=== PATIENT | female | born 1990 | race Caucasian/White ===

== ENCOUNTER → 2020-10-23 12:42 | Outpatient (CLI) | payer SELFPAY ==
--- NOTE | 2020-10-23 12:45 | DI.RAD.S_ITS ---
PROCEDURE: HL HYSTEROSAPINGOGRAPHY INDICATIONS: IVF COMPARISON: None. FINDINGS: Patient had a documented negative test prior to the study. Following speculum insertion, a balloon-tip catheter was inserted into the cervical canal, and secured by inflating the balloon. Contrast was then injected into the endometrial canal. Uterus: The uterine cavity appears normal in size and morphology, without synechiae or masses. Fallopian tubes: Both fallopian tubes fill with contrast and abrupt blind ended appearance in keeping with prior ligation. IMPRESSION: Expected ligated appearance of both fallopian tubes as above Dictated by: Jw Neville M.D. on 10/23/2020 at 15:30 Approved by: Jw Neville M.D. on 10/23/2020 at 15:48
--- NOTE | 2020-10-23 13:33 | PM.PROC.1 ---
Procedures Date/Time Date of procedure: 10/23/20 Time of procedure: 13:33 General Procedure description: Hysterosalpingogram After informed consent was obtained, the patient was placed on the fluoroscopy table. An upside down bedpan was placed under her bottom. A open-sided speculum was placed into the vagina. The cervix was cleaned x3 with Betadine. A single-tooth tenaculum was placed on the anterior lip of the cervix. The hysterosalpingogram catheter passed easily into the endometrial cavity and the balloon was inflated with 3 cc of air. The open sided speculum was removed from the vagina. Approximately 20 cc of Optiray 300 were injected into the catheter under fluoroscopic examination. The contours of the uterus were normal. There was some fill in the tubes but no spillage. The contrast was removed from the uterus. The single-tooth tenaculum was removed from the anterior lip of the cervix. The catheter was removed from the uterus. Complications: none
== END ==
PROVIDERS: Referring Provider Obstetrics & Gynecology; Visit Provider Obstetrics & Gynecology
DX: Z31.83 Encounter for assisted reproductive fertility procedure cycle (principal); E28.2 Polycystic ovarian syndrome
CPT/HCPCS: 58340; 74740

== ENCOUNTER 2022-10-28 06:22 | Day surgery (SDC) | payer SELFPAY ==
[2022-10-25 15:20] VITALS: BMI 29.2
[2022-10-28] VITALS (12 sets, daily range): BP systolic 109–142; BP diastolic 60–77; PULSE 82–144; RESP 10–22; TEMP 36.4–36.7; O2SAT 94–100; BMI 29.2
--- NOTE | 2022-10-28 | PATH_ITS ---
[facility] Accession Number: [id number] No. of containers..01 Tissue . 01 Material submitted: . uterus - UTERUS, BILATERAL FALLOPIAN TUBES . 01 Diagnosis: A. Uterus and Bilateral Fallopian Tubes, Supracervical Hysterectomy and Bilateral Salpingectomy: Proliferative phase endometrium. Serosa within normal limits. Myometrium within normal limits. Cross-sections of bilateral fallopian tubes with benign paratubal cysts and features of hydrosalpinx. No evidence of neoplasia or malignancy. [facility] 11/05/2022 1140 Local . 01 Electronically signed: . Vera Ritchie MD, Pathologist NPI- [id number] . 01 Gross description: . The specimen is received in formalin, labeled with the patient's name, , and uterus, bilat fallopian tubes, consists of a fragmented uterus (84 grams, 11.5 x 9.6 x 2.8 cm in aggregate) with two unoriented fimbriated fallopian tubes (7.6 x 0.8 cm and 5.9 x 0.6 cm, respectively) with no cervix or additional adnexa identified. The serosa is waters and wrinkled with no evidence of adhesion or hemorrhage identified. The endometrium is waters-brown and velvety, and averages 0.1 cm thick. The myometrium is waters and trabecular with no nodules or lesions identified. The longer fallopian tube has congested smooth serosa with multiple cystic structures measuring up to 1.7 cm in greatest dimension filled with clear serous fluid. Sectioning reveal an area of discontinuous lumen measuring 1.0 cm in length. All the remaining lumen ranges from stellate to dilated. The shorter fallopian tube has congested smooth serosa with multiple cystic structures measuring up to 1.2 cm in greatest dimension filled with clear serous fluid. Sectioning reveals an area of discontinuous lumen measuring 1.1 cm in length. The remaining lumen ranges from stellate to dilated. [place]rick[place] [employer]er sections are submitted as follows: A1: Endometrium. A2: Serosa. A3: Longer fallopian tube to include one-half of bisected fimbriae and cross-sections. A4: [place] fallopian tube to include one-half of bisected fimbriae and cross-sections. ([id number]) /MRV 10/29/2022 [facility]1 Local . 01 Pathologist provided ICD-10: N92.0, N86, K42.9 . 01 CPT . 371172 Specimen Comment: A courtesy copy of this report has been sent to [phone] Performed at: 01 [facility] [address] [place] [address] [id number] MD Michael Guzman MD Phone: [phone]
[2022-10-28] MEDS: LACTATED RINGERS 1,000 ML 100 ML IV ×4 (06:58→16:32)
--- NOTE | 2022-10-28 07:38 | PM.PREOP ---
Pre-operative Note Interval Note History & Physical reviewed/Exam performed by Physician: Yes Changes to H&P: No
--- NOTE | 2022-10-28 07:46 | PM.PREOP ---
Pre-operative Note COVID-19 Criteria for continued procedure: Delay expected to result in less-positive ultimate med/surg outcome Interval Note History & Physical reviewed/Exam performed by Physician: Yes Changes to H&P: No H&P completed within 30 days and has changed as indicated here:: 10/21/22
[2022-10-28] MEDS: ACETAMINOPHEN IV 1,000 MG/100 ML VIAL 400 MG IV (08:00)
[2022-10-28] MEDS: CEFAZOLIN 2 GM/100 ML PREMIX 100 ML IV (08:00)
--- NOTE | 2022-10-28 08:32 | SUR.OPER ---
Lithotomy on padded OR bed. [place] Pad Positioner under torso. Head on pillow, arms padded and tucked at sides. Legs secured in padded yellow fins stirrups.
[2022-10-28] MEDS: BUPIVACAINE 0.5% (PF) 30 ML, EPINEPHrine 0.15 MG INJ (08:39)
[2022-10-28] MEDS: ROPIVACAINE 0.2% PF 2 MG/ML 20ML AMP 20 ML INJ (09:00)
--- NOTE | 2022-10-28 09:57 | PM.GYNOP.1 ---
Operative Date/Time/Diagnoses Date of procedure: 10/28/22 Time of procedure: 09:57 Pre-op diagnosis: Dysmenorrhea Menorrhagia Right Hydrosalpinx Cervical ectropion Bleeding after intercourse Post-op diagnosis: same Procedure & Clinicians Procedure: Procedures Operation Date: 10/28/22 07:45 Actual Procedure Side Surgeon p Laparoscopic Supracervical Hysterectomy, bilateral salpingectomy, cautery of ectropion Clotilde Valverde MD s Hernia Repair - Umbilical Jose Alfredo Queen MD Indications: Menorrhagia Dysmenorrhea Cervical ectropion Bleeding after intercourse Right hydrosalpinx Surgeon: Clotilde Valverde [employer] Flatbed Truck Driver: Delores Leary Anesthesia Type: General and Local Operative Notes Findings: 8 week size anteverted uterus Adenomyosis Right hydrosalpinx Left paratubal cyst Normal ovaries Normal appendix Normal liver Tubes status post ligation Omental to anterior abdominal wall adhesions Closure Type: primary Specimen(s): left tube, right tube and uterus Applied: catheter (Removed at the end of the case) Estimated blood loss (mL): 50 Blood products transfused: none Procedure in detail: The patient was taken to the operating room where she was placed in the dorsal supine position. After adequate general endotracheal anesthesia was achieved, she was placed in the dorsal lithotomy position, and prepped and draped in the usual sterile fashion. A timeout was performed. A bivalve speculum was placed into the vagina and the anterior lip of the cervix grasped with a single-tooth tenaculum. The cervical os was sequentially dilated until the ZUMI uterine manipulator could pass easily into the endometrial cavity. The single-tooth tenaculum was removed from the anterior lip of the cervix, and the bivalve speculum was removed from the vagina. Attention was then turned to the abdomen where 6 mL of half percent Marcaine with epinephrine were injected in the umbilical fold. A 5 mm incision was made. The Verees needle was placed into the peritoneal cavity, and its placement confirmed by aspiration and drop test. The Verees needle was removed. A 5 mm trocar was placed without difficulty. 2 other incisions were made 4 cm lateral to the umbilicus after 5 mL of half percent Marcaine with epinephrine were injected. These were 5 mm incisions. Two 5 mm trocars were placed under direct visualization. The Powerseal was used to take down the omental adhesions, with cautery and cut. The right tube was grasped with an atraumatic grasper. Using the Powerseal the mesosalpinx was cauterized and cut all the way down to the cornua of the uterus. The cornua of the uterus was then grasped with an atraumatic grasper. The utero-ovarian ligaments were cauterized and cut. The round ligament and broad ligament was cauterized and cut. Hemostasis was achieved. The bladder flap was created using the Powerseal with cautery and cut jail across. The uterine arteries on the right side were extensively cauterized. All of this was repeated on the left side. The remainder of the bladder flap was created using the Powerseal, and the bladder taken down off the lower uterine segment and cervix. Using the [place], the cervix was amputated from the uterus 2 cm above the uterosacral ligaments, after the ZUMI uterine manipulator was removed from the uterus. There was a small amount of bleeding noted from the posterior edge of the cervix, and this was cauterized for hemostasis. A sponge stick was placed into the vagina. 6 mL of half percent Marcaine with epinephrine were injected above the pubic symphysis. A 12 mm trocar was placed. An Endobag was placed through the suprapubic trocar and the uterus and tubes were placed into the Endobag. The trocar was removed. The edges of the endobag were brought up through the skin. The uterus was grasped with a Zuleyma. The Darwin was placed into the endobag. The uterus and tubes were hand morcellated in approximately 4 pieces. The Darwin and Endobag were removed from the peritoneal cavity. The fascia was closed with 0-vicryl in a running fashion. The abdomen was reinsufflated with CO2. The pelvis was copiously irrigated with warm normal saline. No bleeding was noted. The instruments were removed from the abdomen. The CO2 was allowed to escape. The subcutaneous layer on the suprapubic incision was reapproximated with 2-0 vicryl with simple interrupted sutures. All of the incisions were closed with 4-0 Biosyn in a subcuticular fashion. Steri strips and Allevyn dressings were placed. The moistened sponge stick was removed from the vagina. Sponge, lap, and instrument counts were correct x-2. The patient tolerated the procedure well, was taken to PACU in stable condition. Complications: none Post-operative Condition: stable Disposition: PACU Plan for aftercare: To acute care after recovery
--- NOTE | 2022-10-28 10:07 | PM.OP.1 ---
Operative Date/Time/Diagnoses Date of procedure: 10/28/22 Time of procedure: 10:07 Pre-op diagnosis: Umbilical hernia Post-op diagnosis: same Procedure & Clinicians Procedure: Open umbilical hernia repair Same procedure as scheduled: Yes Indications: Symptomatic reducible umbilical hernia Surgeon: Jose Alfredo Queen Click Yes if Unassisted: Yes Anesthesia Type: General Operative Notes Findings: 1 cm fascial defect Specimen(s): none sent Estimated Blood Loss (mL): 10 Procedure in detail: Following the hysterectomy the umbilical hernia was repaired. A infra umbilical incision had been created for laparoscopic access and this incision was slightly extended. Through this incision the subcutaneous tissue was divided and the fascia was exposed demonstrating an approximately 1 cm size fascial defect. Given the small size of the defect no mesh was utilized. The hernia sac was dissected off the fascia and returned to the abdomen. The fascia was then closed with interrupted Ethibond suture. Subcutaneous tissue was reapproximated with Vicryl skin was closed with a running Monocryl. Patient tolerated the operation well was extubated and transferred to recovery in stable condition. Post-operative Condition: stable Disposition: same day surgery
[2022-10-28] MEDS: ONDANSETRON 4 MG/2 ML INJ IV (12:35)
--- NOTE | 2022-10-28 15:18 | PC.NURSE ---
Pt Arrived from PACU approximately 1045 a.m. She is A&OX4, VSS, afebrile on RA. X4 allevyn sites to abdomen C/D/I. Patient is able to ambulate to BR and void without difficulty. She has x2 episodes of vomitting and reports nausea this afternoon. She is given prn zofran with good effect, and reports feeling sleepy. LR IVF running 100ml/hr.Frequent rounding, bed alarm, call light in reach. Her is supportive at bedside this afternoon.
[2022-10-28] MEDS: ACETAMINOPHEN 325 MG TABLET 650 MG PO (17:54)
[2022-10-28] MEDS: DOCUSATE 100 MG CAPSULE 200 MG PO (21:13)
[2022-10-29 05:43] VITALS: BP 110/57; PULSE 85; RESP 21; TEMP 36.1; O2SAT 99
[2022-10-29] MEDS: KETOROLAC 30 MG/ML VIAL IV (05:55)
[2022-10-29] MEDS: ACETAMINOPHEN 325 MG TABLET 650 MG PO (05:55)
[2022-10-29 06:38] LABS: Add Manual Diff / Slide Review NO; Basophils Absolute Auto 100 /uL (0-100); Basophils Percent Auto 0.7 % (0-2); Eosinophils Absolute Auto 100 /uL (0-450); Eosinophils Percent Auto 0.5 % (2-4); Hematocrit 32.5 % (36-46); Hemoglobin 11.3 g/dL (12.0-16.0); Lymphocytes Absolute Auto 3400 /uL (1100-4500); Lymphocytes Percent Auto 30.3 % (25-40); Mean Corpuscular HGB Conc 34.8 % (30-36); Mean Corpuscular Hemoglobin 30.1 PG (26-34); Mean Corpuscular Volume 86.5 fL (80-100); Monocytes Absolute Auto 1000 /uL (0-900); Monocytes Percent Auto 9.1 % (3-14); Neutrophils Absolute Auto 6700 /uL (1500-7000); Neutrophils Percent Auto 59.4 % (50-75); Platelet Count 297 X10^3/uL (150-400); Red Blood Cell Count 3.75 X10^6/uL (4.0-5.2); Red Cell Distribution Width 13.8 % (11.6-14.8); White Blood Cell Count 11.2 X10^3/uL (4.5-11.0)
[2022-10-29] MEDS: DOCUSATE 100 MG CAPSULE 200 MG PO (08:12)
[2022-10-29 08:34] VITALS: BP 114/69; PULSE 76; RESP 16; TEMP 36.3; O2SAT 97
--- NOTE | 2022-10-29 08:50 | CM.DANOTE ---
DCP: Case received, EMR reviewed. Was unable to meet with patient, for she has already left [place] the ferry, since she has DC orders, and checked her room, she already left. Completed DCP assessment based upon information currently available. Patient is a 31 year old female who admitted yesterday morning to the care of the surgical team. PCP: Dr. Chen. Payer: confirmed: [employer]. Patient came to the hospital for a surgical procedure. She had open umbilical hernia repair. Patient has history of umbilical hernia. Went to meet patient, but she already left the hospital, per nursing, wanted to get the 0900 ferry. Confirmed that patient resides in [place], with spouse. She is employed at [employer]. P: Patient has discharged home with no needs. Princess Thacker RN/Worm Farm Laborer Discharge Planning/Care Management CM Discharge Assessment Start: 10/29/22 08:49 Freq: Status: Active Protocol: Document 10/29/22 08:50 (Rec: 10/29/22 08:50 [id number]) Discharge Planning Assessment Assigned [employer] Princess Thacker RN/Worm Farm Laborer Advance Directives? No History Provided By Patient,Medical Record Prior Living Arrangements House Household Members spouse,children Type of transporation used prior to Drives own vehicle admit Independent with ADL's Yes Is patient alert and oriented? Yes Caregiver for Another No Barriers to Discharge No Discharge Plan Home Transportation Arrangement Family Referrals Initiated None needed Whiteboard Updated in Patient Room with Yes name and ext. # of [employer] Review Status In Process Next Review Type Continued Stay Review Pre-Anesthesia Assessment Start: 10/25/22 15:11 Freq: Status: Complete Protocol: Document 10/25/22 15:20 CAB (Rec: 10/25/22 15:23 [facility] [id number]) Pre-Anesthesia Assessment Patient Information Reviewed Via Chart Review Primary Care Provider Peggy Chen Seen Specialist in Last 12 Months Yes Specialist Seen General surgeon,Shell Fisherman Primary Language Kosovan Flight Information Expediter Required No Height 5 ft 4 in Weight 170 lb Body Mass Index (BMI) 29.2 Barriers to Learning None Anesthesia Review Requested No Gm Mobile No Smoking Status Never smoker History of Falling (Recent or History of No ) Patient is completely paralyzed or No completely immobile Mental Status Oriented to own ability Is patient on oxygen? No Hx Sleep Apnea No Currently Taking a Beta Tasha No Anti-Coagulant Therapy No Has a Prizer Hand No Cardiac Testing No Hx Pacemaker/ICD No Pacemaker Rep Required? No Cardiac Clearance Received Not Applicable Urinary Catheter Present No Hx Urinary Self Catheterization No Diabetes No Patient No Marital Status Lives With spouse,children Patient Discharge Plan Description Return Home Comment Lives on [facility]
--- NOTE | 2022-10-29 09:50 | PC.NURSE ---
Pt is A&OX4, VSS, afebrile. She is able to tolerate cereal with breakfast this a.m. and is ambulating independently around the room, as well as voiding without difficulty. No bleeding observed to jojo pad. Abdominal dressings c/d/i. She is evaluated and cleared for discharge home this a.m. by . She verbalizes understanding of activity limitations, site care, medications, s/sx of complication/infection as well as follow up appointment plan. At approximately 0845 she is escorted via w/ch by PUPIL PERSONNEL WORKER with all of her belongings to private vehicle for discharge home with catching 0930 Ocean to [place].
--- NOTE | 2022-11-01 18:59 | PM.DS.1 ---
History of Present Illness History of Present Illness Date Patient Seen: 10/29/22 Time Patient Seen: 07:30 Chief complaint: OPB Narrative: Patient is a 31-year-old postop day # 1 status post laparoscopic supracervical hysterectomy with bilateral salpingectomy and lysis of adhesions She has voided without the catheter. She is tolerating a diet. She is ambulating without assistance. Discharge Providers Provider Discharge Date: 10/29/22 Primary care physician: Peggy Chen, MSN, EXTRUSION DIE REPAIR MANAGER, TISSUE PACKER- Discharge provider: Clotilde Valverde MD Summary Hospital Course Discharge Diagnosis: Hydrosalpinx Menorrhagia Dysmenorrhea Pelvic adhesions Hospital Course: Patient presented on October 28, 2022 for a scheduled laparoscopic supracervical hysterectomy bilateral salpingectomy. She underwent this procedure along with lysis of adhesions without complication. Her catheter was removed at the end of the case. Her postoperative course was unremarkable. She voided without the catheter. She tolerated a diet. She ambulated without assistance. No nausea or vomiting. Pain well controlled. She was discharged home on postop day #1. Status at Discharge Cognitive/behavioral status at discharge: oriented Functional status at discharge: independent ambulation Overall status at discharge: patient is progressing back to baseline Time Spent with Patient Time spent: Less than 30 minutes Exam Vital Signs (past 8 hours): Oxygen Delivery Method Room Air Oxygen Flow Rate 0 Narrative Exam Narrative: Generally: Patient is sitting up on edge of bed, no acute distress Lungs: Clear to auscultation bilaterally Cardiovascular: Regular rate and rhythm Abdomen: Soft. Incisions: Clean dry and intact with Allevyn dressing Extremities: Negative Homans Objective Labs 10/29/22 06:25 [facility] Medical History Polycystic ovary Surgical History Status post delivery Status post delivery (05/26/15) Status post tubal ligation (05/26/15) Social History household members: spouse and children Smoking Status: Never smoker alcohol intake: current Discharge Assessment & Plan Assessment and Plan Assessment: Assessment: Postop day # 1 status post laparoscopic supracervical hysterectomy/bilateral salpingectomy/lysis of adhesions Patient doing very well Plan of Treatment: Discharge to home Follow-up in 2 weeks Discharge Plan Discharge Plan Patient Disposition: Home Provider Discharge Comment: Call with fever, chills, redness or drainage around the incisions, or bleeding vaginally more than spotting to light Ibuprofen 600 mg every 6 hours as needed Tylenol 650 mg every 6 hours as needed Stool softeners as needed Discharge orders & Medications Discharge Orders: Discharge (Order); Ordered 10/29/22 Ordered By: Clotilde Valverde Prescriptions: No Action No Known Home Medications Follow up/Referrals: Clotilde Valverde MD [Physician] - (My office will call to set up 2 week telehealth postop appointment and 6 week in person final postop check) Diet/Activity/Treatments Diet: Regular Activity: No heavy lifting Nothing in the vagina for 4 weeks Skin/Wound/Dressing Care Report to your healthcare provider any signs of infection, such as:: chills, fever, increased pain, unusual drainage and unusual redness Dressing: Remove outer pink dressings with attached gauze in 3 days after morning shower Leave Steri-Strips in place Visit Report/Discharge Packet Instructions: DI for Hernia Repair, DI for Hysterectomy, DI for Laparoscopy, [facility]: Wound Care Stand Alone Forms: Patient Portal/API, Surgery Discharge Discharge Data Primary Care Provider: Peggy Chen Attending Provider: Clotilde Valverde Quality VTE Deep Vein Thrombosis/Pulmonary Embolism Present on Admission: No
== END 2022-10-29 08:45 | disposition home or self-care (01) ==
LOC: OR 06:24 → AC 06:24
PROVIDERS: Surgery; PCP Nurse Practitioner Family; Referring Provider Obstetrics & Gynecology; Visit Provider Obstetrics & Gynecology
PROC: 0UT94ZL Resection of Uterus, Supracervical, Percutaneous Endoscopic Approach (ICD-10-PCS; CPT 58542; principal; 2022-10-28 07:45)
PROC: (CPT 49591; 2022-10-28 07:45)
DX: N94.6 Dysmenorrhea, unspecified (principal); N92.0 Excessive and frequent menstruation with regular cycle; N70.11 Chronic salpingitis; N86 Erosion and ectropion of cervix uteri; N83.8 Other noninflammatory disorders of ovary, fallopian tube and broad ligament; N80.03 Adenomyosis of the uterus; K42.9 Umbilical hernia without obstruction or gangrene
CPT/HCPCS: 58542; 49591; 85025; J0131; J0171; J0690; J1100; J1170; J1885; J2250; J2405; J2704; J2795; J3010; J3490

== ENCOUNTER → 2023-12-06 09:43 | Outpatient (CLI) | payer OTHER, SELFPAY ==
[2023-11-11 09:34] VITALS: BMI 29.2
--- NOTE | 2023-12-06 09:43 | DI.US.S_ITS ---
PROCEDURE: US PELVIC COMPLETE INDICATIONS: LOW BACK PAIN TECHNIQUE: Real-time scanning was performed of the pelvic organs, with image documentation. Additional endovaginal scanning was necessary due to incomplete visualization of the adnexal and endometrial structures by transabdominal scanning. COMPARISON: [facility], US, US PELVIC COMPLETE, 09/28/2022, 14:39. FINDINGS: Uterus: Absent Ovaries: The right ovary measures 2.6 x 3.9 x 2.5 cm, with a calculated ovarian volume of 13.3 cc. The left ovary measures 3.2 x 2.2 x 2.8 cm, with a calculated ovarian volume of 10.3 cc. The ovaries have a normal sonographic appearance. Less than 12 follicles can be seen in each ovary. No adnexal masses are seen. Other: No pathologic free abdominal or pelvic fluid. IMPRESSION: Unremarkable exam We strive to produce accurate, complete, and clear reports of imaging services. To assist us in improving patient care, this report was composed using standard report templates and voice recognition software. Therefore, it may contain abnormal punctuation, insertions and/or omissions. Occasional wrong-word or sound-alike substitutions may occur. Though we review the report and make efforts to correct it, we do recommend that the report be read carefully in proper context to recognize any text inaccuracies. Dictated by: Ivon Faith M.D. on 12/06/2023 at 11:33 Approved by: Ivon Faith M.D. on 12/06/2023 at 11:34
== END ==
LOC: US 09:43
PROVIDERS: Referring Provider Student in an Organized Health Care Education/Training Program; Visit Provider Student in an Organized Health Care Education/Training Program
DX: M54.50 Low back pain, unspecified (principal); Z90.710 Acquired absence of both cervix and uterus
CPT/HCPCS: 76830; 76856; 93975

== ENCOUNTER 2024-04-07 16:32 | Emergency (ER) | payer OTHER, SELFPAY ==
[2023-12-28 08:06] VITALS: BMI 29.2
[2024-04-07 16:43] VITALS: BP 125/79; PULSE 94; RESP 16; TEMP 36.4; O2SAT 100; BMI 30.5
--- NOTE | 2024-04-07 17:50 | ED_ITS ---
HPI - Abdominal Pain <Socorro Woodward DO - Last Filed: 04/08/24 09:58> General Chief Complaint: Urogenital-Female Stated Complaint: sent by [facility] for pelvic px Time Seen by Provider: 04/07/24 17:39 Source: patient Mode of arrival: Ambulatory History of Present Illness HPI narrative: Patient is a healthy 33-year-old female with history of hysterectomy presenting today with right lower quadrant pain and right hip pain. She reports the last couple days he has had kind of referred hip pain it does double her over in pain at times. No nausea vomiting or fever. She also reports some abnormal vaginal spotting like brown is. She has no concern for STD she is happily . [place]. Based on exam she was instructed to go to an ER for an ultrasound in his CT along with blood work. She reports that no swabs were done. She says that she does have abnormal pelvic exam is frequently her cervix looks atypical. She says that when she was she had some right flank pain and right lower quadrant pain she has not sure if this is the same. No chest pain or shortness of breath. Related Data Previous Rx's Medication Instructions Recorded triamcinolone acetonide 0.1 % 1 applic topical DAILY #15 grams 12/28/23 topical cream Allergies Allergy/AdvReac Type Severity Reaction Status Date / Time adhesive tape AdvReac rash, Verified 04/07/24 16:43 swelling Patient History <Socorro Woodward DO - Last Filed: 04/08/24 09:58> Medical History Vestibular papillomatosis Obesity (BMI 30.0-34.9) Dysmenorrhea in adolescent Breast mass, right Breast pain, right Polycystic ovary Surgical History Status post tubal ligation (05/26/15) Status post delivery (05/26/15) Status post delivery Social History household members: spouse and children Smoking Status: Never smoker alcohol intake: current Smoking Status: Never smoker alcohol intake frequency: holidays/special occasions only Substance Use Type: does not use Exam <Socorro Woodward DO - Last Filed: 04/08/24 09:58> Initial Vital Signs Initial Vital Signs: Vital Signs Temperature 97.6 F 04/07/24 16:43 Pulse Rate 94 H 04/07/24 16:43 Respiratory Rate 16 04/07/24 16:43 Blood Pressure 125/79 04/07/24 16:43 Pulse Oximetry 100 04/07/24 16:43 Oxygen Delivery Method Room Air 04/07/24 16:43 GENERAL: Alert pleasant 33-year-old female and in no acute distress. HEENT: Head atraumatic,EOMI, pupils reactive, face symmetric, moist mucous membranes CARDIOVASCULAR: Regular rate and rhythm without murmurs, rubs or gallops. RESPIRATORY: Breath sounds equal bilaterally, no wheezes rales or rhonchi. ABDOMEN: Soft, right lower quadrant no guarding or rebound : No CVA tenderness EXTREMITIES: Normal range of motion, no clubbing or edema. Neurovascularly intact NEUROLOGICAL: Alert and oriented x4.Normal gait and speech. SKIN: Warm, dry, no laceration, no petechiae, no rashes or lesions. <Dakota Baeza MD - Last Filed: 04/08/24 00:49> Initial Vital Signs Initial Vital Signs: Vital Signs Temperature 97.6 F 04/07/24 16:43 Pulse Rate 94 H 04/07/24 16:43 Respiratory Rate 16 04/07/24 16:43 Blood Pressure 125/79 04/07/24 16:43 Pulse Oximetry 100 04/07/24 16:43 Oxygen Delivery Method Room Air 04/07/24 16:43 Course <Socorro Woodward DO - Last Filed: 04/08/24 09:58> Orders Ordered: Discontinued Medications Ondansetron HCl (Ondansetron 4 Mg/2 Ml Inj) 4 mg IV NOW PRN PRN Reason: Nausea And Vomiting Ondansetron HCl (Ondansetron 4 Mg Odt) 4 mg SL NOW PRN PRN Reason: Nausea And Vomiting Vital Signs Vital signs: Vital Signs - 8 hr 04/07/24 18:00 04/07/24 18:30 04/07/24 20:00 Pulse Rate 96 H 80 84 Respiratory Rate 20 16 18 Blood Pressure 124/70 130/62 133/63 Pulse Oximetry 99 96 96 Oxygen Delivery Method Nasal Cannula <Dakota Baeza MD - Last Filed: 04/08/24 00:49> Orders Ordered: Discontinued Medications Ondansetron HCl (Ondansetron 4 Mg/2 Ml Inj) 4 mg IV NOW PRN PRN Reason: Nausea And Vomiting Ondansetron HCl (Ondansetron 4 Mg Odt) 4 mg SL NOW PRN PRN Reason: Nausea And Vomiting Vital Signs Vital signs: Vital Signs - 8 hr 04/07/24 18:00 04/07/24 18:30 04/07/24 20:00 Pulse Rate 96 H 80 84 Respiratory Rate 20 16 18 Blood Pressure 124/70 130/62 133/63 Pulse Oximetry 99 96 96 Oxygen Delivery Method Nasal Cannula MDM - Abdominal Pain <Socorro Woodward DO - Last Filed: 04/08/24 09:58> Lab Data 04/07/24 17:53 04/07/24 17:53 Labs: Lab Results 04/07/24 04/07/24 Range/Units 17:53 18:05 WBC 7.3 (4.5-11.0) X10^3/uL RBC 4.38 (4.0-5.2) X10^6/uL Hgb 13.3 (12.0-16.0) g/dL Hct 38.6 (36-46) % MCV 88.1 (80-100) fL MCH 30.3 (26-34) PG MCHC 34.3 (30-36) % RDW 12.8 (11.6-14.8) % Plt Count 321 (150-400) X10^3/uL Neut % (Auto) 48.6 L (50-75) % Lymph % (Auto) 36.3 (25-40) % [place] % (Auto) 13.4 (3-14) % Eos % (Auto) 0.9 L (2-4) % Baso % (Auto) 0.8 (0-2) % Neut # (Auto) 3500 (9942-5981) /uL Lymph # (Auto) 2600 (4170-3511) /uL [place] # (Auto) 1000 H (0-900) /uL Eos # (Auto) 100 (0-450) /uL Baso # (Auto) 100 (0-100) /uL Sodium 139 (137-145) mmol/L Potassium 4.0 (3.4-5.1) mmol/L Chloride 105 (98-107) mmol/L Carbon Dioxide 24 (22-32) mmol/L BUN 11 (7-17) mg/dL Creatinine 0.67 (0.52-1.04) mg/dL Estimated GFR > 60 (>60) mL/min BUN/Creatinine Ratio 16.4 (6-22) Glucose 108 H (70-100) mg/dL Calcium 9.0 (8.4-10.2) mg/dL Total Bilirubin 0.4 (0.2-1.3) mg/dL AST 44 H (14-36) IU/L ALT 68 H (<35) IU/L Alkaline Phosphatase 64 (38-126) U/L Total Protein 8.4 H (6.3-8.2) g/dL Albumin 4.6 (3.5-5.0) g/dL Globulin 3.8 (1.7-4.1) g/dL Albumin/Globulin Ratio 1.2 (1.0-2.8) Ur Chlamydia DNA (PCR) Not detected N gonorrhoeae DNA (PCR) Not detected Point of care testing: Urine Dip Bedside Urine Glucose Negative Bedside Urine Bilirubin - Negative Bedside Urine Ketone - Negative Urine Specific [place] 1.01 Bedside Urine Occult Blood - Negative Bedside Urine pH 8.5 Bedside Urine Protein +/- 15 Bedside Urine Urobilinogen - Negative Bedside Urine Nitrite - Negative Bedside Urine Leukocytes - Negative Esterase MDM Narrative Medical decision making narrative: Patient is a healthy 33-year-old female presenting today with ongoing right lower quadrant pain for the last few days. She had at normal pelvic exam yesterday. She reports that she does not typically have vaginal discharge. On exam she is tender in the right lower quadrant. I suspect hip pain is referred from right lower quadrant. At this time we discussed repeat pelvic exam however she would prefer not to. She does not have concerns for STD but is okay with urine testing. do self Differential diagnosis ovarian cyst, appendicitis nephrolithiasis UTI STD Patient signed out to Dr. Baeza for further workup evaluation and disposition pending labs imaging <Dakota Baeza MD - Last Filed: 04/08/24 00:49> Lab Data Attestation: I reviewed the patient's lab results. Lab results narrative: White blood count 7300, hemoglobin 13.3, platelets adequate. Basic metabolic panel unremarkable. Liver functions normal. Urine dip negative. Labs: Lab Results 04/07/24 04/07/24 Range/Units 17:53 18:05 WBC 7.3 (4.5-11.0) X10^3/uL RBC 4.38 (4.0-5.2) X10^6/uL Hgb 13.3 (12.0-16.0) g/dL Hct 38.6 (36-46) % MCV 88.1 (80-100) fL MCH 30.3 (26-34) PG MCHC 34.3 (30-36) % RDW 12.8 (11.6-14.8) % Plt Count 321 (150-400) X10^3/uL Neut % (Auto) 48.6 L (50-75) % Lymph % (Auto) 36.3 (25-40) % [place] % (Auto) 13.4 (3-14) % Eos % (Auto) 0.9 L (2-4) % Baso % (Auto) 0.8 (0-2) % Neut # (Auto) 3500 (8946-1105) /uL Lymph # (Auto) 2600 (0707-7364) /uL [place] # (Auto) 1000 H (0-900) /uL Eos # (Auto) 100 (0-450) /uL Baso # (Auto) 100 (0-100) /uL Sodium 139 (137-145) mmol/L Potassium 4.0 (3.4-5.1) mmol/L Chloride 105 (98-107) mmol/L Carbon Dioxide 24 (22-32) mmol/L BUN 11 (7-17) mg/dL Creatinine 0.67 (0.52-1.04) mg/dL Estimated GFR > 60 (>60) mL/min BUN/Creatinine Ratio 16.4 (6-22) Glucose 108 H (70-100) mg/dL Calcium 9.0 (8.4-10.2) mg/dL Total Bilirubin 0.4 (0.2-1.3) mg/dL AST 44 H (14-36) IU/L ALT 68 H (<35) IU/L Alkaline Phosphatase 64 (38-126) U/L Total Protein 8.4 H (6.3-8.2) g/dL Albumin 4.6 (3.5-5.0) g/dL Globulin 3.8 (1.7-4.1) g/dL Albumin/Globulin Ratio 1.2 (1.0-2.8) Ur Chlamydia DNA (PCR) Not detected N gonorrhoeae DNA (PCR) Not detected Point of care testing: Urine Dip Bedside Urine Glucose Negative Bedside Urine Bilirubin - Negative Bedside Urine Ketone - Negative Urine Specific [place] 1.01 Bedside Urine Occult Blood - Negative Bedside Urine pH 8.5 Bedside Urine Protein +/- 15 Bedside Urine Urobilinogen - Negative Bedside Urine Nitrite - Negative Bedside Urine Leukocytes - Negative Esterase Imaging Data CT scan - abdomen/pelvis: Radiologist's Impression: [address] [address] [address] Scan Report Signed Patient: Debbie Machado MR#: [id number] : 1990 Acct:[id number] Age/Sex: 33 / F Date of Service: 04/07/24 Loc: ED Accession Number: [id number] Procedure: CT abdomen pelvis w con Ordering Provider: Socorro Woodward D.O. PROCEDURE: CT ABDOMEN PELVIS W CON INDICATIONS: RLQ pain TECHNIQUE: After the administration of intravenous contrast, axial sections acquired from the lung bases to the pubic symphysis. Coronal and sagittal reformats were performed. For radiation dose reduction, the following was used: automated exposure control, adjustment of mA and/or kV according to patient size. COMPARISON: [facility], , CT ABDOMEN/PELVIS WITHOUT CONTRAST, 09/20/2022, 12:11. FINDINGS: Image quality: Diagnostic. Lower Chest: No significant findings. ABDOMEN: Liver: No solid mass. Diffuse fatty infiltration of the liver. Gallbladder: No radiopaque gallstones or wall thickening. Biliary ducts: No biliary dilation. Pancreas: No ductal dilation. Spleen: Size is within normal limits. Adrenal Glands: No adrenal nodules. Kidneys and Ureters: No hydronephrosis. No solid mass. No complex renal cystic lesion which requires follow up. Stomach and Bowel: Mild bowel wall thickening throughout the transverse, descending, and sigmoid colon. Normal appendix. Small bowel loops and stomach are unremarkable. Peritoneum: No abnormal intraperitoneal fluid. No free air. Ventral Wall: Small fat containing periumbilical hernia. Abdominal Nodes: No retroperitoneal or mesenteric adenopathy by size criteria. Vessels: Aorta and inferior vena cava are normal in size. PELVIS: Pelvic Organs: Unremarkable. Bladder: No bladder wall thickening, accounting for underdistention. Pelvic Nodes: No enlarged lymph nodes. Miscellaneous: No inguinal hernias are seen. Bones: No aggressive osseous abnormality. IMPRESSION: 1. Mild bowel wall thickening in the colon may be related to underdistention or a mild colitis. Normal appendix. 2. Diffuse hepatic steatosis. Approved by: Joel Nash M.D. on 04/07/2024 at 18:38 Ultrasound pelvis: Radiologist's Impression: [address] [address] Ultrasound Report Signed Patient: Debbie Machado MR#: [id number] : 1990 Acct:[id number] Age/Sex: 33 / F Date of Service: 04/07/24 Loc: ED Accession Number: [id number] Procedure: US pelvic complete Ordering Provider: Socorro Woodward D.O. PROCEDURE: US PELVIC COMPLETE INDICATIONS: RLQ pain TECHNIQUE: Real-time scanning was performed of the pelvic organs, with image documentation. Additional endovaginal scanning was necessary due to incomplete visualization of the adnexal and endometrial structures by transabdominal scanning. COMPARISON: [facility], CT, CT ABDOMEN PELVIS W CON, 04/07/2024, 17:59. [facility], US, US PELVIC COMPLETE, 12/06/2023, 9:49. FINDINGS: Uterus: Status post hysterectomy. Ovaries: The right ovary measures 4.2 x 2.4 x 3.0 cm, with a calculated ovarian volume of 15.8 cc. The left ovary measures 2.1 x 2.8 x 2.4 cm, with a calculated ovarian volume of 7.2 cc. The ovaries have a normal sonographic appearance. Less than 12 follicles can be seen in each ovary. No adnexal masses are seen. Normal arterial Doppler flow seen to each ovary. Other: No pathologic free abdominal or pelvic fluid. IMPRESSION: No sonographic signs of ovarian torsion. Status post hysterectomy. Approved by: Joel Nash M.D. on 04/07/2024 at 19:17 MDM Narrative Medical decision making narrative: Patient is a healthy 33-year-old female presenting today with ongoing right lower quadrant pain for the last few days. She had at normal pelvic exam yesterday. She reports that she does not typically have vaginal discharge. On exam she is tender in the right lower quadrant. I suspect hip pain is referred from right lower quadrant. At this time we discussed repeat pelvic exam however she would prefer not to. She does not have concerns for STD but is okay with urine testing. do self Differential diagnosis ovarian cyst, appendicitis nephrolithiasis UTI STD Patient signed out to Dr. Baeza for further workup evaluation and disposition pending labs imaging 04/07/24, 6:00 p.m., Aryan. Sign-out from Dr. Woodward. 33-year-old female with history of prior hysterectomy complains of right lower quadrant for the last few days, seen in clinic setting yesterday had pelvic examination, some vaginal discharge evaluation at that time, no specific treatment. Also with some right-sided hip pain, possibly referred from the right lower quadrant/pelvis. Repeat pelvic exam was offered here, declined. Lab testing serum studies sent, including urine GC chlamydia screen. Pelvic ultrasound requested. CT abdomen and pelvis imaging requested. Assumed care. Serum studies reassuring. Urine GC negative. Urine chlamydia negative. CT abdomen and pelvis showed some colonic thickening but no pericolonic inflammatory change, possible underdistention. See radiology report. On my examination patient did not seem to have abdominal tenderness, clinically doubt colitis, patient agrees, we will hold antibiotics for now. Ultrasound pelvis showed no acute changes, see radiology report. No adnexal mass or enlargement described in text. Copies of CT abdomen/pelvis and ultrasound pelvis reports given to the patient, unclear concern about the prior outpatient clinic visit from their pelvic exam findings, patient reiterates she does not want to have repeat pelvic exam now here. No abdominopelvic CT/ultrasound imaging concerns identified so far. Follow up advised with patient's own diversity specialist Dr. Valverde, to call for clinic appointment Tuesday, for further evaluation Discharged home with family, return precautions discussed Discharge Plan Departure Patient Disposition: Home Clinical Impression: Abdominal pain Activity Restrictions/Additional Instructions: Abdominal discomfort unclear cause, right-sided. Serum labs unremarkable, urine chlamydia and gonorrhea screen negative. Pelvic exam was offered repeat here in the emergency department, declined. CT scan showed some colonic thickening but no inflammatory change, possibly underdistention. No abdominal tenderness on my examination. Hold antibiotics for now. Ultrasound pelvis showed no adnexal abnormalities, good blood flow to both ovaries. See radiology reports. Consider follow up with your diversity specialist Dr. Valverde, contact her office on Tuesday. Return earlier to this/nearest emergency department for any change worsening symptoms or any concerns prior Prescriptions: No Action triamcinolone acetonide 0.1 % cream 1 applic topical DAILY Qty: 15 0RF Rx Instructions: apply thin layer of cream to affected area once daily Referrals: Clotilde Valverde MD [Physician] - Miscellaneous,MD Elsie [Primary Care Provider] - Stand Alone Forms: Patient Portal/API/Survey
[2024-04-07 18:00] VITALS: BP 124/70; PULSE 96; RESP 20; O2SAT 99
[2024-04-07 18:04] LABS: Add Manual Diff / Slide Review NO; Basophils Absolute Auto 100 /uL (0-100); Basophils Percent Auto 0.8 % (0-2); Eosinophils Absolute Auto 100 /uL (0-450); Eosinophils Percent Auto 0.9 % (2-4); Hematocrit 38.6 % (36-46); Hemoglobin 13.3 g/dL (12.0-16.0); Lymphocytes Absolute Auto 2600 /uL (1100-4500); Lymphocytes Percent Auto 36.3 % (25-40); Mean Corpuscular HGB Conc 34.3 % (30-36); Mean Corpuscular Hemoglobin 30.3 PG (26-34); Mean Corpuscular Volume 88.1 fL (80-100); Monocytes Absolute Auto 1000 /uL (0-900); Monocytes Percent Auto 13.4 % (3-14); Neutrophils Absolute Auto 3500 /uL (1500-7000); Neutrophils Percent Auto 48.6 % (50-75); Platelet Count 321 X10^3/uL (150-400); Red Blood Cell Count 4.38 X10^6/uL (4.0-5.2); Red Cell Distribution Width 12.8 % (11.6-14.8); White Blood Cell Count 7.3 X10^3/uL (4.5-11.0)
[2024-04-07 18:11] LABS: Alanine Aminotransferase 68 IU/L (<35); Albumin 4.6 g/dL (3.5-5.0); Albumin Globulin Ratio 1.2 (1.0-2.8); Alkaline Phosphatase 64 U/L (38-126); Aspartate Aminotransferase 44 IU/L (14-36); BUN Creatinine Ratio 16.4 (6-22); Bilirubin Total 0.4 mg/dL (0.2-1.3); Blood Urea Nitrogen 11 mg/dL (7-17); Carbon Dioxide 24 mmol/L (22-32); Chloride 105 mmol/L (98-107); Estimated Glomerular Filt Rate > 60 mL/min (>60); Globulin 3.8 g/dL (1.7-4.1); Glucose 108 mg/dL (70-100); HEMOLYSIS < 15 (0-50); Sodium 139 mmol/L (137-145); Total Protein 8.4 g/dL (6.3-8.2)
[2024-04-07 18:30] VITALS: BP 130/62; PULSE 80; RESP 16; O2SAT 96
[2024-04-07 19:40] LABS: Urine N gonorrhoeae NOT DETECTED
[2024-04-07 19:47] LABS: Urine Chlamydia NOT DETECTED
[2024-04-07 20:00] VITALS: BP 133/63; PULSE 84; RESP 18; O2SAT 96
== END 2024-04-07 20:00 | disposition home or self-care (01) ==
PROVIDERS: Emergency Medicine; Emergency Provider Emergency Medicine
DX: R10.31 Right lower quadrant pain (principal)
CPT/HCPCS: 36415; 74177; 76830; 76856; 80053; 81003; 85025; 87491; 87591; 93975; 99284; Q9967

== ENCOUNTER → 2024-04-18 09:04 | Outpatient (CLI) | payer OTHER, SELFPAY ==
[2023-12-28 08:06] VITALS: BMI 29.2
[2024-04-20 13:11] LABS: Candida species Negative (Negative); Gardnerella vaginalis Negative (Negative); Trichomoas vaginalis Negative (Negative)
== END ==
PROVIDERS: Visit Provider Obstetrics & Gynecology
DX: N89.8 Other specified noninflammatory disorders of vagina (principal); R10.2 Pelvic and perineal pain; N94.10 Unspecified dyspareunia; R68.82 Decreased libido
CPT/HCPCS: 87070; 87205; 87480; 87491; 87510; 87563; 87591; 87660

== ENCOUNTER 2024-04-30 06:45 | Day surgery (SDC) | payer OTHER, SELFPAY ==
[2023-12-28 08:06] VITALS: BMI 29.2
[2024-04-26 08:15] VITALS: BMI 30.2
[2024-04-30] VITALS (8 sets, daily range): BP systolic 108–126; BP diastolic 50–73; PULSE 83–127; RESP 7–22; TEMP 36.2–36.4; O2SAT 92–98; BMI 31.1
--- NOTE | 2024-04-30 | PATH_ITS ---
[facility] Accession Number: [id number] No. of containers..01 Tissue . 01 Material submitted: . soft tissue - RIGHT LABIAL MASS . 01 Diagnosis: RIGHT LABIAL, EXCISION: Fragments of fibroadipose tissue with fibrosis, increased vessels, and scattered nerve bundles; see note. . Note: An additional step section is examined on block A1. The findings are not entirely specific; however, they engender a broad differential diagnosis to include changes at the edge of an irritated hemangioma or potential secondary reactive changes at the site of prior trauma or procedural site changes. Clinical correlation is suggested. MRV 05/04/2024 1625 Local . 01 Comment: This case has been reviewed by Dr. Brigitte Palmer, who agrees with the above diagnosis. . 01 Electronically signed: . Sylvester Quinones MD, Dermatopathologist NPI- [id number] . 01 Gross description: . Received in formalin with two patient identifiers and right labial mass, are two waters and dark brown roughened fragments of possible skin. The first measures 0.9 x 0.8 x 0.7 cm, inked blue, trisected, and submitted entirely in A1. The second fragment measures 0.5 x 0.5 x 0.3 cm, possible margin is inked blue, bisected and submitted entirely in A2. ([id number]) /MRV 05/01/2024 194 Local . 01 Pathologist provided ICD-10: R23.9, D18.01 . 01 CPT . 334631 Specimen Comment: A courtesy copy of this report has been sent to [phone] Performed at: [address] [id number] MD Michael Guzman MD Phone: [phone]
--- NOTE | 2024-04-30 07:26 | SUR.OPER ---
Lithotomy on padded OR bed. [place] Pad Positioner under torso. Head on pillow, arms padded and tucked at sides. Legs secured in padded yellow fins stirrups.
[2024-04-30] MEDS: LACTATED RINGERS 1,000 ML 42 ML IV (07:32)
[2024-04-30] MEDS: ACETAMINOPHEN 325 MG TABLET 975 MG PO (07:34)
--- NOTE | 2024-04-30 07:43 | P.HPOB_ITS ---
History of Present Illness History of Present Illness Reason for admission: pelvic pain (deep dyspareunia) Narrative: Debbie Machado is a 33 year old female who presents for a diagnostic laparoscopy with possible lysis of adhesions, possible cervical removal, and removal of right labial mass. This is being done due to deep dyspareunia, and a right labial mass. [facility] Medical History (Updated 04/22/24 @ 00:01 by ) Vestibular papillomatosis Obesity (BMI 30.0-34.9) Dysmenorrhea in adolescent Breast mass, right Breast pain, right Polycystic ovary Surgical History (Updated 04/26/24 @ 08:18 by Janina Nance RN) History of surgery (10/28/22) Status post tubal ligation (05/26/15) Status post delivery (05/26/15) Status post delivery Social History household members: spouse and children Smoking Status: Never smoker alcohol intake: current Meds Home Medications and Allergies Allergies Allergy/AdvReac Type Severity Reaction Status Date / Time adhesive tape AdvReac rash, Verified 04/30/24 07:23 swelling Exam Vital Signs (past 8 hours): - 04/30/24 07:26 Temperature 97.2 F L Pulse Rate 87 Respiratory Rate 18 Blood Pressure 114/73 Pulse Oximetry 96 Oxygen Delivery Method Room Air Oxygen Delivery Method Room Air Narrative Exam Narrative: Generally: A well-developed, well-nourished female, no acute distress Lungs: Clear to auscultation bilaterally Cardiovascular: Regular rate and rhythm Abdomen: Well-healed laparoscopy scars. No hepatosplenomegaly. No guarding or rebound tenderness. No masses palpable. Tour Guide exam: deferred to OR Extremities: No edema Assessment & Plan Assessment & Plan narrative: Assessment: 33-year-old 2 para 2 with deep dyspareunia and a right labial mass Plan: Diagnostic laparoscopy with possible lysis of adhesions, possible vaginal trachelectomy, and removal of right labial mass The risks, benefits, and alternatives to the procedure were explained to the patient. The risks including bleeding, infection, injury to the bowel, bladder, or ureters. She understands these risks and agrees to proceed. A full par Q was held and consent form was signed. Time-Based Coding :: [TOTAL MINUTES] spent with patient and on the chart (including review of chart, obtaining history, exam, reviewing outside data, placing orders, documenting exam and treatment plan, and counseling patient) on [DATE].
--- NOTE | 2024-04-30 07:46 | PM.PREOP ---
Pre-operative Note Interval Note History & Physical reviewed/Exam performed by Physician: Yes Changes to H&P: No H&P completed within 30 days and has changed as indicated here:: 04/30/24
[2024-04-30] MEDS: CEFAZOLIN 2 GM/100 ML PREMIX 100 ML IV (07:53)
[2024-04-30] MEDS: BUPIVACAINE 0.5% W/ EPI (PF) 30 ML VIAL INJ (08:09)
[2024-04-30] MEDS: ONDANSETRON 4 MG/2 ML INJ IV (09:05)
--- NOTE | 2024-04-30 09:09 | PM.GYNOP.1 ---
Operative Date/Time/Diagnoses Date of procedure: 04/30/24 Pre-op diagnosis: Deep dyspareunia Right labia mass Post-op diagnosis: same Procedure & Clinicians Procedure: Procedures Operation Date: 04/30/24 07:45 Actual Procedure Side Surgeon p Diagnostic Laparoscopy, removal of EPIPLOIC APPENDAGE, excision of right labial mass Clotilde Valverde MD Indications: 33 year old with deep dyspareunia and a right labia mass Surgeon: Clotilde Valverde Anesthesia Type: General and Local Operative Notes Findings: Uterus surgically absent Normal ovaries bilaterally Epiploic appendice attached to the bladder Normal gallbladder and liver Normal appendix Closure Type: primary Specimen(s): other (right labial mass) Applied: catheter (in/out) Estimated blood loss (mL): 3 Blood products transfused: none Procedure in detail: After informed consent was obtained, the patient was taken to the operating room where she was placed in the dorsal supine position. After adequate general endotracheal anesthesia was achieved, she was placed in the dorsal lithotomy position, and prepped and draped in the usual sterile fashion. A time-out was performed. A moistened sponge stick was placed into the vagina. Attention was then turned to the abdomen where 6 cc of 0.5% Marcaine with epinephrine were injected in the umbilical fold through a previous incision. The Veress needle was placed into the peritoneal cavity, and its placement confirmed by aspiration and drop test. The abdominal cavity was insufflated with 3.4 L of CO2. The Veress needle was removed, and a 5 mm trocar was placed without difficulty. The balloon was inflated with 3 cc of air. A second 5 mm incision was made through the previous incision on the left side 4 cm lateral to the umbilicus after 6 cc of 0.5% Marcaine with epinephrine were injected. A second 5 mm trocar was placed without difficulty. The balloon was inflated with 3 cc of air. The patient was placed into Trendelenburg. Using the probe, the pelvis was examined. There was a small epiploic appendices stuck above the bladder. The endo Megan with cautery were used to remove it and it was removed through a 5 mm trocar. There were no adhesions that were seen. The cervix was normal post supracervical hysterectomy. It was reperitonealized. There was no evidence of endometriosis. The ovaries appeared normal. The tubes were previously removed. The uterus was previously removed. The gallbladder, liver, and appendix were normal. The instruments were removed from the abdomen. The CO2 was allowed to escape. The incisions were repaired with 4-0 Monocryl in a subcuticular fashion. Steri-Strips and Allevyn dressings were placed. Attention was turned to the vulva. The moistened sponge stick was removed from the vagina. The mass was palpated on the left labia. 6 cc 0.5% Marcaine with epinephrine were injected. An elliptical incision was made and carried down approximately 5 mm and the mass was removed. There appeared to be a cluster of sebaceous cysts. The Bovie was used for hemostasis. Two simple interrupted interrupted deeper sutures were placed with 2-0 Vicryl. The skin was closed with 3-0 chromic with 4 simple interrupted sutures. Hemostasis was achieved. Sponge, lap, and instrument counts were correct x2. The patient tolerated the procedure well, and was taken to PACU in stable condition. Complications: none Post-operative Condition: stable Disposition: PACU Plan for aftercare: Home after recovery
[2024-04-30] MEDS: METOCLOPRAMIDE 10 MG/2 ML INJ IV (09:17)
[2024-04-30] MEDS: SODIUM CHLORIDE 0.9% 500 ML 1000 ML IV (09:17)
== END 2024-04-30 10:10 | disposition home or self-care (01) ==
PROVIDERS: Referring Provider Obstetrics & Gynecology; Visit Provider Obstetrics & Gynecology
PROC: (CPT 49320; principal; 2024-04-30 07:45)
DX: N94.10 Unspecified dyspareunia (principal); R22.2 Localized swelling, mass and lump, trunk; Q43.8 Other specified congenital malformations of intestine
CPT/HCPCS: 58662; 11420; 12041; J0690; J1100; J1885; J2250; J2405; J2704; J2765; J3010; J3490

== ENCOUNTER → 2024-07-26 14:12 | Outpatient (CLI) | payer OTHER, SELFPAY ==
[2023-12-28 08:06] VITALS: BMI 29.2
[2024-07-26 16:28] LABS: Estradiol, Total 35.5 pg/mL
[2024-07-28 13:36] LABS: Candida species Negative (Negative); Gardnerella vaginalis Negative (Negative); Trichomoas vaginalis Negative (Negative)
== END ==
PROVIDERS: Referring Provider Obstetrics & Gynecology; Visit Provider Obstetrics & Gynecology
DX: N89.8 Other specified noninflammatory disorders of vagina (principal); N90.5 Atrophy of vulva
CPT/HCPCS: 36415; 82670; 87480; 87510; 87660

== ENCOUNTER 2024-12-25 17:51 | Emergency (ER) | payer SELFPAY ==
[2023-12-28 08:06] VITALS: BMI 29.2
[2024-12-25 18:01] VITALS: BP 140/76; PULSE 86; RESP 18; TEMP 36.9; O2SAT 100; BMI 29.7
== END 2024-12-25 19:36 | disposition left against medical advice (07) ==
PROVIDERS: Emergency Provider Student in an Organized Health Care Education/Training Program
DX: R10.2 Pelvic and perineal pain (principal)
CPT/HCPCS: 81003; 99281